=== PATIENT | female | born 2000 | race Caucasian/White ===

== ENCOUNTER 2021-09-24 07:28 | Emergency (ER) | payer OTHER ==
[2021-09-24] MEDS ORDERED: AMOXicillin 250 MG CAP ONE (07:50)
[2021-09-24] MEDS ORDERED: Ibuprofen 200 MG TAB ONE (07:50)
[2021-09-24] MEDS ORDERED: HYDROcodone/Acetaminophen 5/325 mg Tablet ONE (07:50)
== END 2021-09-24 08:20 | disposition home or self-care (01) ==
LOC: ERS 07:28
DX: K08.89 Other specified disorders of teeth and supporting structures (principal); F17.290 Nicotine dependence, other tobacco product, uncomplicated
CPT/HCPCS: 99283